=== PATIENT | male | born 1950 | race Caucasian/White ===

== ENCOUNTER 2020-06-10 09:30 | Outpatient (AMB) | payer MEDICARE, BC, SELFPAY ==
--- NOTE | 2020-06-10 09:30 | AM.PHNO ---
Nursing Note S/W patient briefly on telephone today with Dionicio RUSSELL, Bisi DIAS and Sheyla SANABRIA. Patient states his brother yesterday from cancer and he wanted the call to be brief. He states his brother's disease course was very quick. He states he has enough pain medications and is having a BM BID and has constipation meds as well. He fell last month and presented to the ED, but the patient states that it was due to his own actions rather than imbalance. He states he is now down to 107 lb despite supplementing with Boost and adding calories. His weight was discussed with LARISSA who is providing him with nutritional supplement samples. Patient agreed to have YVONNE speak with him tomorrow morning. Dr. Abebe updated. *[facility] Office Visit complete [facility] Offive Visit Complete [facility] Visit Complete?: Yes
--- NOTE | 2020-06-10 15:59 | AM.PHNO ---
Nursing Note Palliative Care initial appointment initiated with the patient. Patient is a 69 year old, , male. Patient possesses prostate cancer. Following introductions, the patient informed the Palliative Care team that his brother had yesterday. Patient requested that initial meeting be re-scheduled. Patient denied current intent/plan of SI/HI. Patient shared that he is fully ambulatory. Patient stated that he does not utilize any form of DME. Per the patient, recent fall was not due to losing balance, ?just reached down to far?. No current issues presented by the patient. Present staff members: Siobhan Parsons (pharmacist), Bisi Senior (prime minister), Sheyla Oro (COUNTER CONTROL OPERATOR). *[facility] Office Visit complete [facility] Offive Visit Complete [facility] Visit Complete?: No
--- NOTE | 2020-06-15 14:20 | PR.OPPALCARP ---
OP Palliative Care Referral source Referral Source: Follow-Up Visit Diagnosis Diagnosis: Prostate Cancer Changes in weight Weight Loss: Yes Weight Gain: No Weight Stable: No Weight Change Additional comment: Pt states he currently weighs 107 lbs. This is a 5.7 lb weight loss x1 month. Food intake Food intake: Unchanged Current intake: Normal Intake and Nutritional supplement/Nourishng shakes Food Intake additional comments: Patient has increased his Boost intake to 3x/day. Adds protein powder and his morning shake contains 700+ kcal. Recommendations Recommendations additional comment: Recommended increased nutritional supplements, especially protein. Provided patient/ with samples of Boost Very High Calorie, regular Boost, Peptamen Prebio, Boost Soothe, Boost Pudding, BeneCalorie, and coupon books for $5 off a case of Boost supplements and a coupon book for $3 off a multi-pack of Boost supplements. Items were picked up by downstairs. Conversation was brief due to in family yesterday. Education Education Recipient: Patient Education Topics: Include more nutritional supplements and protein. Follow-up Visit Follow up visit: Yes Follwo-up Visit comment: picked up all supplements on 06/13/20. *[facility] Office Visit complete [facility] Offive Visit Complete [facility] Visit Complete?: Yes
== END 2020-06-10 09:45 | disposition home or self-care (01) ==
LOC: HODCWC 12:24
PROVIDERS: PCP Radiology Therapeutic Radiology; Referring Provider Radiology Therapeutic Radiology; Visit Provider Internal Medicine Hematology
DX: Z71.89 Other specified counseling (principal)